=== PATIENT | female | born 1930 | race Caucasian/White ===

== ENCOUNTER 2018-05-10 06:45 | Emergency (ER) | payer MEDICARE, OTHER ==
[~2018-05-10] VITALS: Ht 172.7 cm; Wt 79.1 kg
[2018-05-10 06:47] VITALS: Ht 172.7 cm; Wt 79.1 kg
[2018-05-10 07:08] LABS: BASOPHILS 0.5 % (0-2); EOSINOPHILS 2.3 % (0-7); HEMATOCRIT 37.1 % (36.0-48.0); HEMOGLOBIN 12.6 g/dL (12-16); IMMATURE GRANULOCYTES 0.9 % (0-5); LYMPHOCYTES 27.9 % (15-50); MCH 30.6 pg (26.0-34.0); MEAN PLATELET VOLUME 9.1 fL (7.4-10.4); MONOCYTES 10.8 % (2-11); NEUTROPHILS 57.6 % (40-80); PLATELET COUNT 232 10x3/uL (130-400); RBC 4.12 10x6/uL (4.00-5.40); RDW 13.5 % (11.5-14.5); WBC 5.6 10x3/uL (4.8-10.8)
[2018-05-10 07:19] LABS: APTT 26.7 SECONDS (22.8-39.4); INR 1.12 (0.85-1.17)
[2018-05-10 07:31] LABS: ALBUMIN 3.3 g/dL (3.4-5.0); ALKALINE PHOSPHATASE 82 U/L (46-116); ALT (SGPT) 12 U/L (10-68); BILIRUBIN - TOTAL 0.34 mg/dL (0.2-1.3); CALC OSMOLALITY 279 mosm/kg (275-300); CALCIUM 8.5 mg/dL (8.5-10.1); CARBON DIOXIDE 27.3 mmol/L (21.0-32.0); CHLORIDE - SERUM 108 mmol/L (98-107); CREATININE - SERUM 0.6 mg/dL (0.6-1.3); GLUCOSE 95 mg/dL (74-106); POTASSIUM - SERUM 3.3 mmol/L (3.5-5.1); PROTEIN - SERUM 6.7 g/dL (6.4-8.2); SODIUM 141 mmol/L (136-145); UREA NITROGEN 10 mg/dL (7-18); eGFR NON AFRICAN AMERICAN > 90 mL/min (90-120)
[2018-05-10 08:23] LABS: APPEARANCE CLEAR (CLEAR); BILIRUBIN NEGATIVE (NEGATIVE); COLOR STRAW (YELLOW); GLUCOSE NEGATIVE (NEGATIVE); KETONE NEGATIVE (NEGATIVE); NITRITE NEGATIVE (NEGATIVE); PROTEIN NEGATIVE (NEGATIVE); SPECIFIC GRAVITY 1.005 (1.005-1.020); UROBILINOGEN NORMAL (NORMAL)
[2018-05-10 08:24] LABS: AMORPHOUS SEDIMENT <1+ /lpf (NONE SEEN); BACTERIA FEW /hpf (NONE SEEN); EPITHELIAL CELLS 0-5 /hpf (0-5); MUCUS <1+ /lpf (NONE SEEN); RED CELLS - URINE 0-5 /hpf (0-5); WHITE CELLS - URINE 0-5 /hpf (0-5)
[2018-05-10 08:36] VITALS: BP 133/57
== END 2018-05-10 08:38 ==
LOC: D.ER 06:45
PROVIDERS: Emergency Medicine
DX: R41.82 Altered mental status, unspecified (principal)

== ENCOUNTER 2018-05-22 22:34 | Emergency (ER) | payer MEDICARE, OTHER ==
[~2018-05-22] VITALS: Ht 172.7 cm; Wt 3.7 kg
[2018-05-22 22:36] VITALS: Ht 172.7 cm; Wt 3.7 kg
[2018-05-22] MEDS ORDERED: LOTREL 10-40 M1 EACH PO (23:09)
[2018-05-22] MEDS ORDERED: FOLATE0.4 MG PO (23:09)
[2018-05-22] MEDS ORDERED: CELEXA20 MG PO (23:09)
[2018-05-22] MEDS ORDERED: ASPIRIN81 MG PO (23:09)
[2018-05-22] MEDS ORDERED: PLAVIX75 MG PO (23:09)
[2018-05-22] MEDS ORDERED: MIRALAX17 GM PO (23:09)
[2018-05-22] MEDS ORDERED: ARICEPT5 MG PO (23:09)
[2018-05-22] MEDS ORDERED: CARDIZEM60 MG PO (23:10)
[2018-05-22] MEDS ORDERED: SYNTHROID50 MCG PO (23:10)
[2018-05-22] MEDS ORDERED: VITAMIN D2000 UNIT PO (23:10)
[2018-05-22] MEDS ORDERED: K-TAB10 MEQ PO (23:10)
[2018-05-22 23:31] LABS: BASOPHILS 0.4 % (0-2); EOSINOPHILS 1.7 % (0-7); HEMATOCRIT 36.3 % (36.0-48.0); HEMOGLOBIN 12.6 g/dL (12-16); IMMATURE GRANULOCYTES 0.7 % (0-5); LYMPHOCYTES 18.7 % (15-50); MCH 31.4 pg (26.0-34.0); MCHC 34.7 g/dL (31.0-37.0); MCV 90.5 fL (80.0-100.0); MEAN PLATELET VOLUME 9.2 fL (7.4-10.4); MONOCYTES 10.2 % (2-11); NEUTROPHILS 68.3 % (40-80); PLATELET COUNT 231 10x3/uL (130-400); RBC 4.01 10x6/uL (4.00-5.40); RDW 13.5 % (11.5-14.5); WBC 8.2 10x3/uL (4.8-10.8)
[2018-05-22 23:47] LABS: INR 1.16 (0.85-1.17); PROTIME 14.4 SECONDS (11.6-15.0)
[2018-05-22 23:48] LABS: APTT 26.5 SECONDS (22.8-39.4)
[2018-05-22 23:55] LABS: ALBUMIN 3.4 g/dL (3.4-5.0); ALKALINE PHOSPHATASE 73 U/L (46-116); ALT (SGPT) 12 U/L (10-68); BILIRUBIN - TOTAL 0.23 mg/dL (0.2-1.3); CALC OSMOLALITY 279 mosm/kg (275-300); CALCIUM 8.7 mg/dL (8.5-10.1); CARBON DIOXIDE 27.8 mmol/L (21.0-32.0); CHLORIDE - SERUM 107 mmol/L (98-107); CREATININE - SERUM 0.7 mg/dL (0.6-1.3); GLUCOSE 110 mg/dL (74-106); POTASSIUM - SERUM 3.2 mmol/L (3.5-5.1); PROTEIN - SERUM 6.4 g/dL (6.4-8.2); SODIUM 140 mmol/L (136-145); UREA NITROGEN 12 mg/dL (7-18); eGFR NON AFRICAN AMERICAN 83 mL/min (90-120)
[2018-05-22 23:57] LABS: TROPONIN-I < 0.017 ng/mL (0.000-0.060)
[2018-05-23 00:11] VITALS: BP 155/78
== END 2018-05-23 00:41 ==
LOC: D.ER 22:34
PROVIDERS: Family Medicine
DX: I61.9 Nontraumatic intracerebral hemorrhage, unspecified (principal); S60.312A Abrasion of left thumb, initial encounter; W01.0XXA Fall on same level from slipping, tripping and stumbling without subsequent striking against object, initial encounter; Y93.02 Activity, running; Y92.128 Other place in nursing home as the place of occurrence of the external cause; S02.5XXA Fracture of tooth (traumatic), initial encounter for closed fracture; S00.83XA Contusion of other part of head, initial encounter; S41.119A Laceration without foreign body of unspecified upper arm, initial encounter